=== PATIENT | female | born 1980 | race Caucasian/White ===

== ENCOUNTER 2023-03-02 01:30 | Emergency (ER) | payer BC, MEDICAID ==
[2023-03-02] MEDS ORDERED: Lidocaine 1% 10 ML MDV INJECT ONE (01:43)
[2023-03-02] MEDS ORDERED: Diphtheria,Pertussis(Acell),Tetanus Vaccine 0.5 ML Syringe IM ONE (02:06)
== END 2023-03-02 02:18 | disposition home or self-care (01) ==
LOC: VM.ED 01:30
DX: S01.111A Laceration without foreign body of right eyelid and periocular area, initial encounter (principal); Z23 Encounter for immunization; W18.09XA Striking against other object with subsequent fall, initial encounter
CPT/HCPCS: 12011; 90471; 90715; 99283-25